=== PATIENT | male | born 1995 | race Caucasian/White ===

== ENCOUNTER 2018-03-05 03:24 | Emergency (ER) | payer OTHER ==
--- NOTE | 2018-03-05 03:48 | PDOC ---
History of Present Illness - General History Source: Patient Exam Limitations: No Limitations - History of Present Illness Travel History: No Initial Comments: 03/05/18 03:49 Best Contact: PCP: Pmhx: Jhonnyhx: Allergies: FH: Social Hx: Cigarettes/ Alcohol/ Drugs/ LMP: 22-year-old male presents to the emergency department with his mother complaining of lower abdominal discomfort times one week. Symptoms are described as 4/10 nonradiating intermittent cramps without any alleviating factors when is exacerbated hours after eating. Patient denies fever, chills, nausea/vomiting, headache, dizziness, lightheadedness, neck pains, back pains, chest pain, shortness of breath, flank pains, urinary symptoms. Patient denies history of similar symptoms.. <Antonette Bailey - Last Filed: 03/05/18 06:00> <Ed Blevins - Last Filed: 03/05/18 22:24> - General Stated Complaint: ABD PAIN Time Seen by Provider: 03/05/18 03:31 Past History <Antonette Bailey - Last Filed: 03/05/18 06:00> <Ed Blevins - Last Filed: 03/05/18 22:24> - Past Medical History Allergies/Adverse Reactions: Allergies Allergy/AdvReac Type Severity Reaction Status Date / Time No Known Allergies Allergy Verified 03/05/18 03:59 Home Medications: Ambulatory Orders NK [No Known Home Medication] 03/05/18 Review of Systems - Review of Systems Able to Perform ROS?: Yes Comments:: 03/05/18 03:51 CONSTITUTIONAL: Absent: fever, chills, diaphoresis, generalized weakness, malaise, loss of appetite HEENT: Absent: rhinorrhea, nasal congestion, throat pain, throat swelling, difficulty swallowing, mouth swelling, ear pain, eye pain, visual Changes CARDIOVASCULAR: Absent: chest pain, loss of consciousness, palpitations, irregular heart rate, peripheral edema RESPIRATORY: Absent: cough, shortness of breath, dyspnea with exertion, orthopnea, wheezing, stridor, hemoptysis GASTROINTESTINAL: +lower abd pain Absent: abdominal distension, nausea, vomiting, diarrhea, constipation, melena, hematochezia GENITOURINARY: Absent: dysuria, frequency, urgency, hesitancy, hematuria, flank pain, genital pain MUSCULOSKELETAL: Absent: myalgia, arthralgia, joint swelling SKIN: Absent: rash, itching, pallor HEMATOLOGIC/IMMUNOLOGIC: Absent: easy bleeding, easy bruising, lymphadenopathy, frequent infections ENDOCRINE: Absent: unexplained weight gain, unexplained weight loss, heat intolerance, cold intolerance NEUROLOGIC: Absent: headache, focal weakness or paresthesias, dizziness, unsteady gait, seizure, mental status changes, bladder or bowel incontinence PSYCHIATRIC: Absent: anxiety, depression, suicidal or homicidal ideation, hallucinations. Is the patient limited Frisian proficient: No <Antonette Bailey - Last Filed: 03/05/18 06:00> *Physical Exam - Physical Exam Comments: 03/05/18 03:51 GENERAL: Well developed, well nourished. Awake and alert. No acute distress. HEENT: Normocephalic, atraumatic. PERRLA, EOMI. No conjunctival pallor. Sclera are non- icteric. Moist mucous membranes. Oropharynx is clear. NECK: Supple. Full ROM. No JVD. Carotid pulses 2+ and symmetric, without bruits. No thyromegaly. No lymphadenopathy. CARDIOVASCULAR: Regular rate and rhythm. No murmurs, rubs, or gallops. Distal pulses are 2+ and symmetric. PULMONARY: No evidence of respiratory distress. Lungs clear to auscultation bilaterally. No wheezing, rales or rhonchi. ABDOMINAL: LLQ >RLQ on deep palp Soft. Non-distended. No rebound or guarding. No organomegaly. Normoactive bowel sounds. MUSCULOSKELETAL Normal range of motion at all joints. No bony deformities or tenderness. No CVA tenderness. EXTREMITIES: No cyanosis. No clubbing. No edema. No calf tenderness. SKIN: Warm and dry. Normal capillary refill. No rashes. No jaundice. NEUROLOGICAL: Alert, awake, appropriate. Cranial nerves 2-12 intact. No deficits to light touch and temperature in face, upper extremities and lower extremities. No motor deficits in the in face, upper extremities and lower extremities. Normoreflexic in the upper and lower extremities. Normal speech. Toes are down- going bilaterally. Gait is normal without ataxia. PSYCHIATRIC: Cooperative. Good eye contact. Appropriate mood and affect. <Antonette Bailey - Last Filed: 03/05/18 06:00> - Vital Signs Last Vital Signs Temp Pulse Resp BP Pulse Ox 98.8 F 88 17 127/55 99 03/05/18 04:20 03/05/18 04:20 03/05/18 04:20 03/05/18 04:20 03/05/18 04:20 <Ed Blevins - Last Filed: 03/05/18 22:24> ED Treatment Course - LABORATORY CBC & Chemistry Diagram: 03/05/18 03:52 03/05/18 03:52 - RADIOLOGY Radiograph Interpretation: 03/05/18 03:52 CT abd/pelvis po/iv contrast No acute findings <Antonette Bailey - Last Filed: 03/05/18 06:00> - LABORATORY CBC & Chemistry Diagram: 03/05/18 03:52 03/05/18 03:52 - ADDITIONAL ORDERS Additional order review: Laboratory Results 03/05/18 03/05/18 03:52 03:52 Sodium 140 Potassium 4.0 Chloride 105 Carbon Dioxide 28 Anion Gap 7 L BUN 10 Creatinine 0.9 Creat Clearance w eGFR > 60 Random Glucose 83 Calcium 8.5 Total Bilirubin 0.6 AST 48 H ALT 84 H Alkaline Phosphatase 100 Total Protein 7.8 Albumin 4.1 Lipase 128 Urine Color Straw Urine Appearance Clear Urine pH 6.0 Ur Specific Stitzer 1.005 Urine Protein Negative Urine Glucose (UA) Negative Urine Ketones Negative Urine Blood 2+ H Urine Nitrite Negative Urine Bilirubin Negative Urine Urobilinogen Negative Ur Leukocyte Esterase Negative Urine WBC (Auto) <1 Urine RBC (Auto) 1 03/05/18 03:52 RBC 5.32 MCV 87.9 MCHC 34.1 RDW 13.2 MPV 8.3 Neutrophils % 54.7 Lymphocytes % 33.7 Monocytes % 8.5 Eosinophils % 2.5 Basophils % 0.6 - Medications Given in the ED: ED Medications Discontinued Medications Generic Name Dose Route Start Last Admin Trade Name Freq PRN Reason Stop Dose Admin Sodium Chloride 1,000 mls @ 1,000 mls/hr 03/05/18 03:49 03/05/18 04:00 Normal Saline - IV 03/05/18 04:48 1,000 mls/hr ASDIR STA Administration <Ed Blevins - Last Filed: 03/05/18 22:24> Progress Note - Progress Note Progress Note: 0602hrs: Patient states he is completely pain-free <Antonette Bailey - Last Filed: 03/05/18 06:00> Medical Decision Making - Medical Decision Making 03/05/18 05:24 The patient was seen and evaluated in conjunction with RIGO Bailey under my direct supervision, ancillary studies were reviewed. I agree with the plan as outlined by RIGO Bailey. <Ed Blevins - Last Filed: 03/05/18 22:24> *DC/Admit/Observation/Transfer - Discharge Dispostion Decision to Admit order: No <Antonette Bailey - Last Filed: 03/05/18 06:00> <Ed Blevins - Last Filed: 03/05/18 22:24> Diagnosis at time of Disposition: Abdominal pain Qualifiers: Abdominal location: unspecified location Qualified Code(s): R10.9 - Unspecified abdominal pain - Discharge Dispostion Disposition: HOME Condition at time of disposition: Stable - Referrals Referrals: Robin Mabry MD [Staff Physician] - - Patient Instructions Printed Discharge Instructions: DI for Abdominal Pain-Adult Additional Instructions: Increase fluids Rest Follow-up with the bedspread cutter listed on your discharge and your physician Return back to the ER for severe/persistent or worsening symptoms
[2018-03-05] MEDS ORDERED: SODIUM CHLORIDE 1,000 ML IV STA (03:49)
[2018-03-05 03:58] VITALS: BP 127/55; PULSE 88; TEMP 98.8; BMI 30.5
[2018-03-05 04:25] LABS: BASO % 0.6 % (0-2.0); EOS % 2.5 % (0-4.5); HEMATOCRIT 46.8 % (35.4-49); LYMPH % 33.7 % (8-40); MCHC 34.1 g/dl (32.0-35.9); MEAN CELL VOLUME 87.9 fl (80-96); MEAN PLT VOLUME 8.3 fl (7.5-11.1); MONO % 8.5 % (3.8-10.2); NEUT % 54.7 % (42.8-82.8); PLATELET COUNT 240 K/MM3 (134-434); RBC 5.32 M/mm3 (4.00-5.60); RDW 13.2 % (11.9-15.9); URINE APPEARANCE CLEAR; URINE BILIRUBIN NEGATIVE (<2.0 mg/dL); URINE COLOR STRAW; URINE GLUCOSE (UA) NEGATIVE (NEGATIVE); URINE KETONE NEGATIVE (NEGATIVE); URINE LEUK ESTERASE NEGATIVE (NEGATIVE); URINE NITRITE NEGATIVE (NEGATIVE); URINE PROTEIN NEGATIVE (NEGATIVE); URINE UROBILINOGEN NEGATIVE mg/dL (0.2-1.0); WHITE BLOOD COUNT 6.4 K/mm3 (4.0-10.0)
[2018-03-05 04:51] LABS: ALBUMIN 4.1 g/dl (3.4-5.0); ALK PHOS 100 U/L (45-117); ANION GAP 7 MMOL/L (8-16); BILIRUBIN,TOTAL 0.6 mg/dL (0.2-1.0); BLOOD UREA NITROGEN 10 mg/dL (7-18); CALCIUM 8.5 mg/dL (8.5-10.1); CHLORIDE 105 mmol/L (98-107); CO2 28 mmol/L (21-32); CREATININE 0.9 mg/dL (0.55-1.3); GLUCOSE,RANDOM 83 mg/dL (74-106); LIPASE 128 U/L (73-393); SGOT/AST 48 U/L (15-37); SGPT/ALT 84 U/L (13-61); SODIUM 140 mmol/L (136-145); TOT PROT 7.8 g/dl (6.4-8.2)
== END 2018-03-05 06:45 | disposition home or self-care (01) ==
LOC: JER 03:24
PROC: 3E0337Z Introduction of Electrolytic and Water Balance Substance into Peripheral Vein, Percutaneous Approach (ICD-10-PCS; principal; 2018-03-05)
DX: R10.9 Unspecified abdominal pain (principal)
CPT/HCPCS: 36415; 74176-TC; 80053; 81003; 81015; 83690; 85025; 99283-25; J7030